=== PATIENT | female | born 1985 ===

== ENCOUNTER 2020-02-05 04:46 | Emergency (ER) | payer SELFPAY ==
[2020-02-05 04:58] VITALS: BP 137/79
[2020-02-05] MEDS ORDERED: ACETAMINOPHEN 325 MG TAB PO ONE (05:43)
[2020-02-05] MEDS ORDERED: IBUPROFEN 600 MG TAB PO ONE (09:42)
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
== END 2020-02-05 11:23 | disposition home or self-care (01) ==
LOC: ED 04:46
DX: S16.1XXA Strain of muscle, fascia and tendon at neck level, initial encounter (principal); M54.5 Low back pain; Z79.899 Other long term (current) drug therapy; V49.59XA Passenger injured in collision with other motor vehicles in traffic accident, initial encounter; Y93.89 Activity, other specified; Y92.488 Other paved roadways as the place of occurrence of the external cause; Y99.8 Other external cause status
CPT/HCPCS: 72040; 72100; 99283